=== PATIENT | male | born 1960 | race Caucasian/White ===

== ENCOUNTER 2018-08-21 17:00 | Emergency (ER) | payer MEDICAID ==
[2018-08-21] MEDS ORDERED: Triple Antibiotic 0.94 gm Pkt TP STA (17:24)
[2018-08-21] MEDS ORDERED: Bacitracin pkt 1 gm Pkt TP ONE (17:34)
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
--- NOTE | 2018-08-22 09:36 | Diagnostic Imaging Report ---
Right knee 3 views Indication: Trauma Comparison: none Findings: Minimally displaced fracture of the mid patella extending to the inferior pole with large knee effusion and surrounding soft tissue swelling. There is slight osseous prominence of the lateral tibial plateau. No discrete fractures identified in this region. Mild degenerative changes of the right knee joint are seen Impression: Minimally displaced fracture of the mid patella extending to the inferior pole with large knee effusion and surrounding soft tissue swelling. Clinical correlation and follow-up recommended. In the setting of trauma, if clinical symptoms persist and there is continued concern for an occult fracture, follow up exams in 5-7 days is recommended. .
== END 2018-08-21 19:00 | disposition home or self-care (01) ==
LOC: ER 17:00
DX: S82.001A Unspecified fracture of right patella, initial encounter for closed fracture (principal); T78.40XA Allergy, unspecified, initial encounter; S31.139A Puncture wound of abdominal wall without foreign body, unspecified quadrant without penetration into peritoneal cavity, initial encounter; L03.311 Cellulitis of abdominal wall; I10 Essential (primary) hypertension; F17.200 Nicotine dependence, unspecified, uncomplicated; V19.9XXA Pedal cyclist (driver) (passenger) injured in unspecified traffic accident, initial encounter; Y93.89 Activity, other specified; Y92.89 Other specified places as the place of occurrence of the external cause; Y99.8 Other external cause status
CPT/HCPCS: 99283; 96372; 73564; 90715; J0696; 73562-TC-RT; Z7502